=== PATIENT | female | born 1950 | race Caucasian/White ===

== ENCOUNTER 2018-06-12 10:34 | Outpatient (CLI) | payer MEDICARE, OTHER, SELFPAY ==
[2018-06-12 13:21] LABS: Hemoglobin A1C 7.3 % (4.5-6.2)
[2018-06-12 13:32] LABS: ALT 27 U/L (12-78); AST 19 U/L (15-37); Albumin 3.6 g/dL (3.4-5.0); Alkaline Phosphatase 81 U/L (46-116); Anion Gap 8.8 mmol/L (3-11); BUN 15 mg/dL (7-18); Bilirubin, Total 0.5 mg/dL (0.2-1.0); CO2 27.2 mmol/L (21.0-32.0); CREATININE 0.88 mg/dL (0.55-1.02); Calcium 9.9 mg/dL (8.5-10.1); Chloride 101 mmol/L (98-107); Glucose 114 mg/dL (70-100); Potassium 4.9 mmol/L (3.5-5.1); Sodium 137 mmol/L (136-145); TSH 6.12 uIU/mL (0.358-3.74); Total Protein 7.4 g/dL (6.4-8.2)
== END 2018-06-12 10:54 ==
PROVIDERS: PCP Emergency Medicine; Visit Provider Emergency Medicine
DX: E11.9 Type 2 diabetes mellitus without complications (principal)
CPT/HCPCS: 36415; 80053; 83036; 84443

== ENCOUNTER 2019-05-25 07:00 | Outpatient (CLI) | payer MEDICARE, OTHER, SELFPAY ==
[2019-05-25 13:25] LABS: Hemoglobin A1C 7.2 % (4.5-6.2)
[2019-05-25 13:36] LABS: Amylase 45 U/L (25-115); Anion Gap 11.3 mmol/L (3-11); BUN 12 mg/dL (7-18); CO2 22.7 mmol/L (21.0-32.0); CREATININE 1.05 mg/dL (0.55-1.02); Calcium 8.7 mg/dL (8.5-10.1); Chloride 95 mmol/L (98-107); Estimated GFR 51.81 (mL/min/1.73m2); Glucose 121 mg/dL (70-100); Lipase 138 U/L (73-393); PHOSPHORUS 2.6 mg/dL (2.6-4.7); Potassium 4.1 mmol/L (3.5-5.1); Sodium 129 mmol/L (136-145); TSH 7.91 uIU/mL (0.36-3.74)
[2019-05-25 13:52] LABS: Calculated LDL 70 mg/dL; Cholesterol 145 mg/dL (50-200); HDL Cholesterol 52 mg/dL (40-60); Triglyceride 118 mg/dL (30-150)
== END 2019-05-25 07:20 ==
PROVIDERS: PCP Emergency Medicine; Visit Provider Emergency Medicine
DX: E11.9 Type 2 diabetes mellitus without complications (principal); K85.90 Acute pancreatitis without necrosis or infection, unspecified; I21.02 ST elevation (STEMI) myocardial infarction involving left anterior descending coronary artery; R79.89 Other specified abnormal findings of blood chemistry; E03.9 Hypothyroidism, unspecified
CPT/HCPCS: 36415; 80048; 80061; 83690; 82150; 83036; 84100; 84443

== ENCOUNTER 2019-05-27 08:40 | Outpatient (CLI) | payer MEDICARE, OTHER, SELFPAY ==
[2019-05-27 10:17] LABS: ALT 16 U/L (14-59); AST 15 U/L (15-37); Albumin 3.1 g/dL (3.4-5.0); Alkaline Phosphatase 77 U/L (46-116); Amylase 57 U/L (25-115); Anion Gap 11.4 mmol/L (3-11); BUN 13 mg/dL (7-18); Bilirubin, Total 0.4 mg/dL (0.2-1.0); CO2 22.6 mmol/L (21.0-32.0); CREATININE 0.96 mg/dL (0.55-1.02); Calcium 9.3 mg/dL (8.5-10.1); Chloride 104 mmol/L (98-107); Estimated GFR 57.46 (mL/min/1.73m2); Glucose 122 mg/dL (70-100); Lipase 203 U/L (73-393); Potassium 4.4 mmol/L (3.5-5.1); Sodium 138 mmol/L (136-145)
== END 2019-05-27 09:00 ==
PROVIDERS: PCP Emergency Medicine; Visit Provider Emergency Medicine
DX: K85.90 Acute pancreatitis without necrosis or infection, unspecified (principal)
CPT/HCPCS: 36415; 80053; 83690; 82150

== ENCOUNTER 2019-06-04 02:16 | Outpatient (CLI) | payer MEDICARE, OTHER, SELFPAY ==
--- NOTE | 2019-06-04 08:06 | DI.CT_ITS ---
EXAM: CT ABDOMEN PELVIS WO/W CLINICAL HISTORY: PANCREATITIS,k85.90 TECHNIQUE: Post oral and IV contrast. COMPARISON: No exams were available for comparison FINDINGS: The lung bases are clear. The liver, spleen, pancreas, kidneys and adrenals are unremarkable. Ther e is motion at the level of the gallbladder. Multiple small stones are seen. There is no biliary dil atation or gallbladder wall thickening. No pancreatic mass or pancreatic inflammation is visible. T he appendix appears normal. There is a normal quantity of stool. No bowel wall thickening or inflam matory changes are seen. The bladder is unremarkable. The patient is status post hysterectomy. No adenopathy, free air or free fluid is seen. There are atherosclerotic changes of the abdominal aorta and iliac arteries but no evidence of an aneurysm. No compression fractures are seen. IMPRESSION: No evidence of pancreatitis or other acute abnormlaity.
[2019-06-04] MEDS: Breeza Beverage 473 ML BTL PO ×2 (08:14→08:16)
[2019-06-04] MEDS: Omnipaque 350 MG/ML 50 ML BTL PO (08:15)
[2019-06-04] MEDS: Omnipaque 350 MG/ML 100 ML BTL IJ (09:34)
== END 2019-06-04 02:36 ==
PROVIDERS: PCP Emergency Medicine; Visit Provider Emergency Medicine
DX: K85.90 Acute pancreatitis without necrosis or infection, unspecified (principal); K80.70 Calculus of gallbladder and bile duct without cholecystitis without obstruction
CPT/HCPCS: 74178; J3490; Q9967

== ENCOUNTER 2020-06-13 08:06 | Outpatient (REF) | payer MEDICARE, OTHER, SELFPAY ==
[2020-06-13 14:32] LABS: Anion Gap 11.6 mmol/L (3-11); BUN 16 mg/dL (7-18); CO2 20.4 mmol/L (21.0-32.0); CREATININE 0.82 mg/dL (0.55-1.02); Calcium 9.7 mg/dL (8.5-10.1); Calculated LDL 44 mg/dL (<100); Chloride 103 mmol/L (98-107); Cholesterol 121 mg/dL (<200); Glucose 131 mg/dL (74-106); HDL Cholesterol 44 mg/dL (40-60); Potassium 4.8 mmol/L (3.5-5.1); Sodium 135 mmol/L (136-145); Triglyceride 168 mg/dL (<150)
[2020-06-13 14:33] LABS: Hemoglobin A1C 7.3 % (<5.7)
== END 2020-06-13 08:26 ==
LOC: LBN 08:06
PROVIDERS: PCP Emergency Medicine; Visit Provider Emergency Medicine
DX: E03.9 Hypothyroidism, unspecified (principal); I10 Essential (primary) hypertension; E11.9 Type 2 diabetes mellitus without complications
CPT/HCPCS: 80048; 80061; 83036; 84443

== ENCOUNTER 2021-01-10 10:30 | Outpatient (CLI) | payer MEDICARE, OTHER, SELFPAY ==
[2021-01-10 13:20] LABS: Hemoglobin A1C 7.5 % (<5.7)
[2021-01-10 13:23] LABS: Anion Gap 10.1 mmol/L (3-11); BUN 13 mg/dL (7-18); CO2 23.9 mmol/L (21.0-32.0); CREATININE 0.9 mg/dL (0.55-1.02); Calcium 9.5 mg/dL (8.5-10.1); Calculated LDL 54 mg/dL (<100); Chloride 104 mmol/L (98-107); Cholesterol 124 mg/dL (<200); Glucose 98 mg/dL (74-106); HDL Cholesterol 47 mg/dL (40-60); Potassium 4.7 mmol/L (3.5-5.1); Sodium 138 mmol/L (136-145); TSH 5.49 uIU/mL (0.36-3.74); Triglyceride 119 mg/dL (<150)
== END 2021-01-10 10:31 | disposition home or self-care (01) ==
LOC: LOS 10:31
PROVIDERS: PCP Emergency Medicine; Visit Provider Emergency Medicine
DX: I10 Essential (primary) hypertension (principal); E11.9 Type 2 diabetes mellitus without complications; E03.9 Hypothyroidism, unspecified
CPT/HCPCS: 36415; 80048; 80061; 83036; 84443

== ENCOUNTER 2021-06-27 16:58 | Emergency (ER) | payer MEDICARE, OTHER, SELFPAY ==
[2021-06-27 17:14] VITALS: BP 158/98; PULSE 116; RESP 20; TEMP 36.6; O2SAT 99
[2021-06-27 18:05] VITALS: PULSE 108; O2SAT 98
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
[2021-06-27 19:56] VITALS: BP 143/89; PULSE 104; RESP 18; O2SAT 98
== END 2021-06-27 20:01 | disposition home or self-care (01) ==
PROVIDERS: Emergency Provider Physician Assistant; PCP Emergency Medicine
DX: R07.89 Other chest pain (principal); V47.6XXA Car passenger injured in collision with fixed or stationary object in traffic accident, initial encounter
CPT/HCPCS: 99283; 71046

== ENCOUNTER 2022-12-06 20:49 | Outpatient (REF) | payer MEDICARE, SELFPAY ==
[2022-12-06 21:16] LABS: Hemoglobin A1C 8.1 % (<5.7)
[2022-12-06 21:25] LABS: ALT 26 U/L (14-59); AST 16 U/L (15-37); Albumin 3.4 g/dL (3.4-5.0); Alkaline Phosphatase 87 U/L (46-116); BUN 12 mg/dL (7-18); Bilirubin, Total 0.3 mg/dL (0.2-1.0); CREATININE 1.1 mg/dL (0.55-1.02); Calcium 9.5 mg/dL (8.5-10.1); Calculated LDL 53 mg/dL (<100); Chloride 104 mmol/L (98-107); Cholesterol 124 mg/dL (<200); Estimated GFR 53.06 (mL/min/1.73m2); Glucose 145 mg/dL (74-106); HDL Cholesterol 43 mg/dL (40-60); Potassium 4.8 mmol/L (3.5-5.1); Sodium 137 mmol/L (136-145); TSH 2.73 uIU/mL (0.36-3.74); Total Protein 7.4 g/dL (6.4-8.2); Triglyceride 142 mg/dL (<150)
[2022-12-06 21:27] LABS: COMMENT (LAB VIEW ONLY) 55.74 mg/dL; Microalb ug/mg Crea 7.4 ug/mg Cr
== END 2022-12-06 20:50 | disposition home or self-care (01) ==
LOC: LBN 20:49
PROVIDERS: PCP Nurse Practitioner Family; Visit Provider Nurse Practitioner Family
DX: I10 Essential (primary) hypertension (principal); I25.10 Atherosclerotic heart disease of native coronary artery without angina pectoris; E03.9 Hypothyroidism, unspecified; E11.9 Type 2 diabetes mellitus without complications
CPT/HCPCS: 80053; 80061; 82043; 82570; 83036; 84439; 84443

== ENCOUNTER → 2023-04-03 03:14 | Outpatient (CLI) | payer MEDICARE, SELFPAY ==
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
== END ==
PROVIDERS: PCP Nurse Practitioner Family; Visit Provider Nurse Practitioner Family
DX: Z12.31 Encounter for screening mammogram for malignant neoplasm of breast (principal); Z78.0 Asymptomatic menopausal state; Z13.820 Encounter for screening for osteoporosis; M81.0 Age-related osteoporosis without current pathological fracture
CPT/HCPCS: 77063; 77067; 77080

== ENCOUNTER 2023-04-10 08:53 | Outpatient (CLI) | payer MEDICARE, SELFPAY ==
--- NOTE | 2023-04-10 08:45 | RT.EKG_ITS ---
APPROVED REPORT Exam: Resting ECG Reason for Exam: CAD Patient Location: O HR:70 bpm ECG Measurements Heart Rate 70 AXIS MA 169 P 41 QRSd 77 QRS -9 QT 394 T -13 QTc 426 Conclusion Sinus rhythm...normal P axis, V-rate 50- 99 Nonspecific T abnormalities, anterior leads...T <-0.10mV, V2-V4 Baseline wander in lead(s) V1,V2
== END 2023-04-10 08:54 | disposition home or self-care (01) ==
LOC: DI.CARD 08:55
PROVIDERS: PCP Nurse Practitioner Family; Visit Provider Internal Medicine Cardiovascular Disease
DX: I25.10 Atherosclerotic heart disease of native coronary artery without angina pectoris (principal)
CPT/HCPCS: 93010

== ENCOUNTER → 2023-04-10 10:44 | Outpatient (BNVA) | payer MEDICARE, SELFPAY | PROVIDERS: PCP Nurse Practitioner Family; Referring Provider Nurse Practitioner Family; Visit Provider Internal Medicine Cardiovascular Disease | DX: I25.2 Old myocardial infarction (principal); Z95.5 Presence of coronary angioplasty implant and graft; I25.10 Atherosclerotic heart disease of native coronary artery without angina pectoris; I10 Essential (primary) hypertension; E78.5 Hyperlipidemia, unspecified | CPT/HCPCS: 93005; 99213 ==

== ENCOUNTER → 2023-04-24 03:33 | Outpatient (CLI) | payer MEDICARE, SELFPAY ==
--- NOTE | 2023-04-24 | DI.US_ITS ---
Exam(s) MG MAMMO SCREEN CALL BACK UNI US BREAST LT LIMITED EXAM: MAMMO SCREEN CALL BACK UNI-LEFT AND COMPLETE LEFT BREAST ULTRASOUND CLINICAL HISTORY: F/U MAMMO, ASYMMETRIC DENSITY NODULAR DENSITY LT BREAST,R92.8. TECHNIQUE: Unilateral spot mammographic images obtained with 3D tomosynthesisand utilizing computer aided detection (CAD). . Complete LEFT breast Ultrasound was also performed, including all 4 quadrants, the retroareolar regio n, and the ipsilateral axilla. COMPARISON: Prior mammograms were reviewed. This additional imaging was performed due to findings described on the recent screening mammogram of 04/03/2023. FINDINGS: DIAGNOSTIC MAMMOGRAM: Additional mammographic views performed todaydo not dissipate this small noncalcified nodule. COMPLETE LEFT BREAST ULTRASOUND: Ultrasound performed today reveals no evidence of solid or significant cystic lesions in all 4 quadra nts. This implies that the small nodular density is most probably a benign intramammary lymph node.. Scanning of the ipsilateral axilla reveals no significant adenopathy. IMPRESSION: 1. The finding in the left breast is most probably a small benign intramammary lymph node. Appropriate follow-up is to give this patient on a yearly mammogram schedule, with earlier imaging i f a self detected breast change is noted.. The patient was informed of these findings and recommendations by myself prior to leaving the departm ent today. BI-RADS Category 2 - Benign Findings Breast Density - Category B - Scattered areas of fibroglandular density Breast density Category C or D implies that the patient has dense breast tissue. Dense breast tissue can make it harder to find cancer on a mammogram. Dense breast tissue is also associated with an incr eased risk of breast cancer. This information about the result of the mammogram report was provided to the patient to raise their awareness. Use this report when you speak with the patient about their risks for breast cancer, which includes their family history. At that time, you may recommend additional screening tests (Ultrasoun d or MRI) as these tests may add significant information. A negative radiographic report should not delay biopsy if a dominant or clinically suspicious mass is present. Up to ten percent of cancers are not identified on mammography. A negative report may reinforce clinical impression. Adenosis and dense breasts may obscure an underlying neoplasm. False positive reports average 6 to 10%. Patient will receive a letter notifying them of these results.
== END ==
PROVIDERS: PCP Nurse Practitioner Family; Visit Provider Nurse Practitioner Family
DX: R92.8 Other abnormal and inconclusive findings on diagnostic imaging of breast (principal); Z12.31 Encounter for screening mammogram for malignant neoplasm of breast
CPT/HCPCS: 76642; 77063; 77067

== ENCOUNTER 2024-01-21 12:21 | Outpatient (REF) | payer MEDICARE, SELFPAY ==
[2024-01-21 12:59] LABS: ALT 19 U/L (14-59); AST 16 U/L (15-37); Albumin 3.6 g/dL (3.4-5.0); Alkaline Phosphatase 67 U/L (46-116); Anion Gap 12.9 mmol/L (3-11); BUN 20 mg/dL (7-18); Bilirubin, Total 0.2 mg/dL (0.2-1.0); CO2 22.1 mmol/L (21.0-32.0); CREATININE 0.8 mg/dL (0.55-1.02); Calcium 9.8 mg/dL (8.5-10.1); Calculated LDL 60 mg/dL (<100); Chloride 105 mmol/L (98-107); Cholesterol 137 mg/dL (<200); Estimated GFR 76.79 (mL/min/1.73m2); Glucose 117 mg/dL (74-106); HDL Cholesterol 56 mg/dL (40-60); Potassium 5.5 mmol/L (3.5-5.1); Sodium 140 mmol/L (136-145); TSH (W/Ref FT4) 0.36 uIU/mL (0.36-3.74); Total Protein 7.2 g/dL (6.4-8.2); Triglyceride 108 mg/dL (<150)
== END 2024-01-21 12:22 | disposition home or self-care (01) ==
LOC: LBN 12:21
PROVIDERS: PCP Nurse Practitioner Family; Visit Provider Nurse Practitioner Family
DX: E78.5 Hyperlipidemia, unspecified (principal); E03.9 Hypothyroidism, unspecified; M81.0 Age-related osteoporosis without current pathological fracture; E11.9 Type 2 diabetes mellitus without complications
CPT/HCPCS: 80053; 80061; 82306; 84443